=== PATIENT | male | born 1995 | race African-American/Black ===

== ENCOUNTER 2017-07-04 04:05 | Emergency (ER) | payer SELFPAY ==
[~2017-07-04] VITALS: Ht 167.6 cm; Wt 85.0 kg
[~2017-07-04 04:05] MED LIST: ABIL5TAB6 PO; ALBU1AER INH; ZITH250T PO; ZOFR4TAB3 SL
[2017-07-04 04:08] VITALS: BP 119/65; PULSE 57; RESP 16; TEMP 98.3; O2SAT 100
[2017-07-04] MEDS ORDERED: ZITHTAB PO (04:27)
[2017-07-04] MEDS ORDERED: MEDR4PAK PO (04:27)
[2017-07-04] MEDS ORDERED: VENTAER INH (04:27)
--- NOTE | 2017-07-04 04:28 | PD ---
HPI Chief Complaint: Respiratory Symptoms Time Seen by Provider: 04:18 Travel History International Travel<30 days: No Contact w/Intl Traveler<30days: No Traveled to known affect area: No History of Present Illness HPI PT C/O COUGH, DRY, WHEEZY ONGOING FOR PAST 2 DAYS, PT STATES HAS H/O ASTHMA OTHERWISE HEALTHY, DENIES SMOKING WELL. PFSH Past Medical History ADHD: No Asthma: Yes (dx when he was a baby) Blood Disorders: No Weight (Kg): 3 Depression: Yes Cancer: No Cardiovascular Problems: No Diabetes: No Diminished Hearing: No Genitourinary: No Headaches: No Musculoskeletal: No Neurologic: No Psychiatric: Yes (Psychosis NOS) Respiratory: Yes (ASTHMA) Immunizations Current: Yes Migraines: Yes (c/o frequent headaches) Seizures: No Sickle Cell Disease: No Thyroid Disease: No Ulcer: No Tetanus Vaccination: Unknown Influenza Vaccination: No Past Surgical History Surgical History: No Previous Surgery Section: Yes Social History Alcohol Use: No Tobacco Use: No Substance Use: No Allergies-Medications (Allergen,Severity, Reaction): Coded Allergies: Fish Containing Products (Unverified Allergy, Severe, 07/04/17) Reported Meds & Prescriptions Reported Meds & Active Scripts Active Ventolin Hfa 18 GM Inh (Albuterol Sulfate) 90 Mcg/Act Aer 1 Puff INH Q4H PRN Medrol Dosepak (Methylprednisolone) 4 Mg Dspk 4 Mg PO DIRECTED Per Pharmacist direction Zithromax Z-Raffi (Azithromycin) 250 Mg Dspk 250 Mg PO DIRECTED 500 MG (2 tabs) day 1, then 1 tab days 2-5. Review of Systems Except as stated in HPI: all other systems reviewed are Neg General / Constitutional: No: Fever Eyes: No: Visual changes HENT: No: Headaches Cardiovascular: No: Chest Pain or Discomfort Respiratory: Positive: Cough, Wheezing Gastrointestinal: No: Abdominal Pain Genitourinary: No: Dysuria Musculoskeletal: No: Pain Skin: No Rash Neurologic: No: Weakness Psychiatric: No: Depression Endocrine: No: Polydipsia Hematologic/Lymphatic: No: Easy Bruising Physical Exam Narrative GENERAL: SKIN: Warm and dry. HEAD: Atraumatic. Normocephalic. EYES: Pupils equal and round. No scleral icterus. No injection or drainage. ENT: No nasal bleeding or discharge. Mucous membranes pink and moist. NECK: Trachea midline. No JVD. CARDIOVASCULAR: Regular rate and rhythm. RESPIRATORY: No accessory muscle use. Clear to auscultation. Breath sounds MINIMAL WHEEZING BILATERALLY BUT GREAT TIDAL VOLUME GASTROINTESTINAL: Abdomen soft, non-tender, nondistended. MUSCULOSKELETAL: Extremities without clubbing, cyanosis, or edema. No obvious deformities. NEUROLOGICAL: Awake and alert. No obvious cranial nerve deficits. Motor grossly within normal limits. Five out of 5 muscle strength in the arms and legs. Normal speech. PSYCHIATRIC: Appropriate mood and affect; insight and judgment normal. Data Data Last Documented VS Orders Orders Influenzae A/B Antigen (07/04/17 04:21) Chest, Pa & Lat (07/04/17 04:21) Albuterol-Ipratropium Neb (Duoneb Neb) (07/04/17 04:30) Ed Discharge Order (07/04/17 05:13) [facility] Medical Decision Making Medical Screen Exam Complete: Yes Emergency Medical Condition: Yes Medical Record Reviewed: Yes Differential Diagnosis PNA V PTX V BRONCHITIS Narrative Course neg flu test, on exam no e/o pna, also cxr neg for pna/ptx at this time Diagnosis Primary Impression: ACUTE BRONCHITIS Patient Instructions: Acute Bronchitis (ED), General Instructions Scripts Albuterol 18 GM Inh (Ventolin Hfa 18 GM Inh) 90 Mcg/Act Aer 1 PUFF INH Q4H Y for SHORTNESS OF BREATH, #1 INHALER 0 Refills Prov: Terrance Palencia MD 07/04/17 Methylprednisolone Dosepak (Medrol Dosepak) 4 Mg Dspk 4 MG PO DIRECTED, #1 DSPK 0 Refills Per Pharmacist direction Prov: Terrance Palencia MD 07/04/17 Azithromycin (Zithromax Z-Raffi) 250 Mg Dspk 250 MG PO DIRECTED for Infection, #1 DSPK 0 Refills 500 MG (2 tabs) day 1, then 1 tab days 2-5. Prov: Terrance Palencia MD 07/04/17 Disposition: 01 DISCHARGE HOME Condition: Stable Terrance Palencia MD Jul 04, 2017 04:28
[2017-07-04] MEDS ORDERED: RESP: ALBUTEROL 2.5 MG/IPRATROPIUM 0.5 MG NEB (SCH) NEB ONE (04:30)
--- NOTE | 2017-07-04 05:16 | RADRPT ---
EXAM DATE/TIME: 07/04/2017 04:53 [facility] COMPARISON: CHEST PA & LAT, September 06, 2014, 13:18. INDICATIONS : Diffculty breathing, chest pain. MEDICAL HISTORY : Asthma. SURGICAL HISTORY : None. ENCOUNTER: Initial ACUITY: 1 day PAIN SCORE: 0/10 LOCATION: Bilateral chest FINDINGS: PA and lateral views of the chest demonstrate the lungs to be symmetrically aerated without evidence of mass, infiltrate or effusion. The cardiomediastinal contours are unremarkable. Osseous structure s are intact. CONCLUSION: 1. No acute cardiopulmonary disease. Jamaal Bergman MD on July 04, 2017 at 5:14 Board Certified Radiologist. This report was verified electronically.
== END 2017-07-04 05:28 | disposition home or self-care (01) ==
LOC: NEPC 04:05
DX: J20.9 Acute bronchitis, unspecified (principal); Z87.09 Personal history of other diseases of the respiratory system; Z86.59 Personal history of other mental and behavioral disorders; Z86.69 Personal history of other diseases of the nervous system and sense organs
CPT/HCPCS: 71020; 87804; 94664; 99284

== ENCOUNTER 2018-01-16 23:26 | Emergency (ER) | payer OTHER ==
[~2018-01-16] VITALS: Ht 167.6 cm; Wt 75.0 kg
[~2018-01-16 23:26] MED LIST changes: -ABIL5TAB6 PO; -ALBU1AER INH; +MEDR4PAK PO; +VENTAER INH; -ZITH250T PO; +ZITHTAB PO; -ZOFR4TAB3 SL
[2018-01-16 23:30] VITALS: BP 169/76; PULSE 84; RESP 16; TEMP 98.4; O2SAT 99
[2018-01-17] MEDS ORDERED: LAMI1GEL TOPICAL (01:40)
[2018-01-17] MEDS ORDERED: BACT800T5 PO (01:40)
[2018-01-17] MEDS ORDERED: SULFAMETHOXAZOLE-TRIMETHOPRIM DS 800-160 MG TAB PO ONE (01:45)
--- NOTE | 2018-01-17 01:45 | PD ---
HPI Chief Complaint: Pain: Acute or Chronic Time Seen by Provider: 01:36 Travel History International Travel<30 days: No Contact w/Intl Traveler<30days: No Traveled to known affect area: No History of Present Illness HPI 22-year-old black male presents emergency department complains of left foot pain and swelling over the past few days. He denies any direct trauma. No fever chills. No drainage. Symptoms are moderate. No alleviating factors. Exacerbated by walking. PFSH Past Medical History ADHD: No Asthma: Yes (dx when he was a baby) Blood Disorders: No Depression: Yes Cancer: No Cardiovascular Problems: No Diabetes: No Diminished Hearing: No Genitourinary: No Headaches: No Musculoskeletal: No Neurologic: No Psychiatric: Yes (Psychosis NOS) Respiratory: Yes (ASTHMA) Immunizations Current: Yes Migraines: Yes (c/o frequent headaches) Seizures: No Sickle Cell Disease: No Thyroid Disease: No Ulcer: No Tetanus Vaccination: < 5 Years Past Surgical History Surgical History: No Previous Surgery Social History Alcohol Use: Yes Tobacco Use: No Substance Use: No Allergies-Medications (Allergen,Severity, Reaction): Coded Allergies: Fish Containing Products (Unverified Allergy, Severe, 01/16/18) Reported Meds & Prescriptions Reported Meds & Active Scripts Active Ventolin Hfa 18 GM Inh (Albuterol Sulfate) 90 Mcg/Act Aer 1 Puff INH Q4H PRN Medrol Dosepak (Methylprednisolone) 4 Mg Dspk 4 Mg PO DIRECTED Per Pharmacist direction Zithromax Z-Raffi (Azithromycin) 250 Mg Dspk 250 Mg PO DIRECTED 500 MG (2 tabs) day 1, then 1 tab days 2-5. Review of Systems General / Constitutional: No: Fever Eyes: No: Visual changes HENT: No: Headaches Cardiovascular: No: Chest Pain or Discomfort Respiratory: No: Shortness of Breath Gastrointestinal: No: Abdominal Pain Genitourinary: No: Dysuria Musculoskeletal: Positive: Limited ROM, Edema, Pain Skin: Positive Rash, Positive Itching Neurologic: No: Weakness Psychiatric: No: Depression Endocrine: No: Polydipsia Hematologic/Lymphatic: No: Easy Bruising Physical Exam Narrative GENERAL: This is a well-nourished, well-developed patient, in no apparent distress. SKIN: No rashes, ecchymoses or lesions. Warm and dry. HEAD: Atraumatic. Normocephalic. EYES: PERRL, EOMI, no discharge or injection. No scleral icterus. EARS: Clear NOSE: Nasal turbinates appear normal. THROAT: Mucosa pink and moist. Airway patent. NECK: Trachea midline. supple, moves head freely. LUNGS: Clear to auscultation. CV: Regular in rhythm. ABDOMEN: Soft nontender. EXT: No clubbing cyanosis. Examination of the left foot reveals scaly dermatitis to the interdigital spaces of the third, fourth, fifth toes. There is some erythema, edema of the fourth toe. Data Data Last Documented VS Vital Signs Date Time Temp Pulse Resp B/P (MAP) Pulse Ox O2 Delivery O2 Flow Rate FiO2 01/16/18 23:30 98.4 84 16 169/76 (107) 99 Orders Orders Sulfamet-Trimeth Ds 800-160 Mg (Bactrim (01/17/18 01:45) Ed Discharge Order (01/17/18 01:39) MDM Medical Decision Making Medical Screen Exam Complete: Yes Emergency Medical Condition: Yes Medical Record Reviewed: Yes Differential Diagnosis MDM: High Differential diagnoses: Abscess, folliculitis, cellulitis, lymphangitis, abrasion, contact dermatitis, tinea, secondary wound infection Narrative Course Patient given Bactrim DS. Diagnosis Primary Impression: Tinea pedis Qualified Codes: B35.3 - Tinea pedis Additional Impression: Impetigo Patient Instructions: General Instructions Additional Instructions: Rest. Keep clean and dry. Daily wound care with soap, water, and Lamisil. Medications as directed. Recheck with your doctor in the next 3-5 days. Med/Other Pt SpecificInfo: Prescription(s) given, Wound Care Scripts Terbinafine Topical (Lamisil Advanced Topical) 1 % Gel 1 APPLIC TOPICAL BID for Manage Fungal Infection for 30 Days, GM 0 Refills Prov: Ashley Ventura DO 01/17/18 Sulfamethoxazole-Trimethoprim (Bactrim DS) 800-160 Mg Tab 1 TAB PO BID for Infection, #20 TAB 0 Refills Prov: Ashley Ventura DO 01/17/18 Disposition: 01 DISCHARGE HOME Condition: Stable Lawrence [place] January 17, 2018 01:45
== END 2018-01-17 01:55 | disposition home or self-care (01) ==
LOC: NEPD 23:26
DX: B35.3 Tinea pedis (principal); L01.00 Impetigo, unspecified
CPT/HCPCS: 99283